=== PATIENT | female | born 1985 | race Caucasian/White ===

== ENCOUNTER 2021-08-04 11:02 | Outpatient (CLI) | payer BC ==
[2021-08-04 15:00] LABS: Hemoglobin 12.3 g/dL (12.0-15.5); Mean Corpuscular HGB CONC 32.5 g/dL (32.0-36.0); Mean Corpuscular Hemoglobin 29.8 pg (27.0-33.0); Mean Corpuscular Volume 91.8 fl (81.6-98.3); Mean Platelet Volume 12.4 fl (7.4-10.4); Platelet Count 344 10x3/uL (150-450); RBC Distribution Width 13.8 % (11.5-14.5); Red Blood Cell (RBC) Count 4.13 10x6/uL (3.90-5.03); White Blood Cell (WBC) Count 14.1 10x3/uL (3.5-10.5)
[2021-08-04 15:31] LABS: HIV (1/2) Antibody/Antigen Non-Reactive (NonReactive); HIV 1/2 INDEX 0.09 S/CO (<1.00); Syphilis Antibody Nonreactive (Nonreactive); Syphilis Antibody Index 0.05 S/CO (<1.00 Non-Reactive)
[2021-08-05 12:53] LABS: HBSAB Concentration Less than 8.00 mIU/mL; Hep B Surf AB Non-Reactive (NonReactive)
[2021-08-05 15:13] LABS: SARS-CoV-2 PCR by NAA Not Detected (NotDetected)
== END 2021-08-04 11:03 | disposition home or self-care (01) ==
LOC: CSHLAB 11:02
PROVIDERS: ATTEND Obstetrics & Gynecology
DX: Z01.812 Encounter for preprocedural laboratory examination (principal); Z20.822 Contact with and (suspected) exposure to COVID-19
CPT/HCPCS: 36415; 85027; 86706; 86780; 87389; U0003; U0005

== ENCOUNTER 2021-08-06 09:47 | Inpatient (IN) | payer BC, OTHER ==
[2021-08-06] MEDS ORDERED: Promethazine HCl 25 MG/ML VIAL IM PRN ×2 (10:31→14:29)
[2021-08-06] MEDS ORDERED: Ondansetron PF 4 MG/2 ML Vial IVP PRN ×2 (10:31→14:29)
[2021-08-06] MEDS ORDERED: Famotidine/PF 20 mg/2ml Vial SLOW IVP PRN (10:31)
[2021-08-06] MEDS ORDERED: ceFAZolin 2 GM/Dextrose 50 ML 2 GM in Premix Bag 1 BAG IVPB SCH (10:31)
[2021-08-06] MEDS ORDERED: hydrALAZINE 20 MG/ML VIAL SLOW IVP PRN (10:31)
[2021-08-06] MEDS ORDERED: Bicitra 30 ML UDCUP PO PRN (10:31)
[2021-08-06] MEDS ORDERED: Morphine PF 10 MG/10 ML VIAL ONE (11:50)
[2021-08-06] MEDS ORDERED: Fentanyl 100 MCG/2 ML VIAL ONE (11:50)
[2021-08-06] MEDS ORDERED: Oxytocin 10 UNITS/ML VIAL ONE ×2 (11:52→13:40)
[2021-08-06] MEDS ORDERED: Ondansetron PF 4 MG/2 ML Vial ONE (11:52)
[2021-08-06] MEDS ORDERED: Dexamethasone 4 mg/ml Vial ONE (11:52)
[2021-08-06] MEDS ORDERED: Ketorolac Tromethamine 30 MG/ML VIAL ONE (11:53)
[2021-08-06] MEDS ORDERED: Phenylephrine 40 MG/NS 250 ML 250 ML ONE (11:53)
[2021-08-06] MEDS ORDERED: Simethicone Chewable 80 MG TAB PO PRN (14:16)
[2021-08-06] MEDS ORDERED: diphenhydrAMINE 25 MG CAP PO PRN (14:16)
[2021-08-06] MEDS ORDERED: Boostrix 0.5 ML (Tdap) VIAL IM ONE (14:16)
[2021-08-06] MEDS ORDERED: Misoprostol 200 MCG TAB PR PRN (14:16)
[2021-08-06] MEDS ORDERED: Bisacodyl 10 MG SUPP PR PRN (14:16)
[2021-08-06] MEDS ORDERED: Lanolin Ointment 7 GM TUBE TOP PRN (14:16)
[2021-08-06] MEDS ORDERED: Acetaminophen 325 MG TAB PO PRN (14:16)
[2021-08-06] MEDS ORDERED: Fentanyl 100 MCG/2 ML VIAL SLOW IVP PRN (14:29)
[2021-08-06] MEDS ORDERED: Naloxone HCl 0.4 mg/ml Vial IVP PRN ×2 (14:29)
[2021-08-06] MEDS ORDERED: Promethazine HCl 25 MG SUPP PR PRN (14:29)
[2021-08-06] MEDS ORDERED: Ondansetron HCl/PF 4 MG/2 ML Vial IVP PRN (14:29)
[2021-08-06] MEDS ORDERED: Meperidine HCl/PF 25 MG/ML VIAL SLOW IVP PRN (14:29)
[2021-08-06] MEDS ORDERED: diphenhydrAMINE 50 MG/ML VIAL IVP PRN (14:29)
[2021-08-06] MEDS ORDERED: Hydrocerin (Eucerin) Cream 120 gm Jar TOP PRN (14:29)
[2021-08-06] MEDS ORDERED: L&D-Morphine 4 MG/ML VIAL SLOW IVP PRN (14:29)
[2021-08-06] MEDS ORDERED: Naloxone HCl 0.4 mg/ml Vial IV PRN (14:29)
[2021-08-06] MEDS ORDERED: Communication Order-Pharmacy FS SCH (14:30)
[2021-08-06] MEDS ORDERED: NS w/ Oxytocin 30 units 500 ML IV SCH (14:30)
[2021-08-06] MEDS ORDERED: Ketorolac Tromethamine 30 MG/ML VIAL IVP SCH (14:30)
[2021-08-06] MEDS: Lactated Ringer's 1,000 ML IV SCH ×2 (16:03→21:46)
[2021-08-06] MEDS ORDERED: ePHEDrine Sulfate 50 MG/10 ML VIAL ONE ×2 (16:40→16:42)
[2021-08-06] MEDS ORDERED: ePHEDrine Sulfate 50 MG/10 ML VIAL SLOW IVP SCH (16:45)
[2021-08-06] MEDS: Docusate 100 MG CAP PO SCH (21:43)
[2021-08-06] MEDS: Ferrous Sulfate 325 MG TAB PO SCH (21:53)
[2021-08-06] MEDS: Ketorolac Tromethamine 30 MG/ML VIAL IVP PRN (22:37)
[2021-08-07] MEDS: Ketorolac Tromethamine 30 MG/ML VIAL IVP PRN (04:54)
[2021-08-07 05:16] LABS: Hemoglobin 9.3 g/dL (12.0-15.5); Mean Corpuscular Hemoglobin 29.8 pg (27.0-33.0); Mean Corpuscular Volume 93.3 fl (81.6-98.3); Platelet Count 285 10x3/uL (150-450); RBC Distribution Width 13.9 % (11.5-14.5); Red Blood Cell (RBC) Count 3.12 10x6/uL (3.90-5.03); White Blood Cell (WBC) Count 13.9 10x3/uL (3.5-10.5)
[2021-08-07] MEDS: Lactated Ringer's 1,000 ML IV SCH (06:03)
[2021-08-07] MEDS: Ferrous Sulfate 325 MG TAB PO SCH ×2 (08:36→20:21)
[2021-08-07] MEDS: Docusate 100 MG CAP PO SCH ×2 (08:36→20:21)
[2021-08-07] MEDS: Prenatal Vitamin 1 TAB PO SCH (08:36)
[2021-08-07] MEDS: Ibuprofen 800 MG TAB PO SCH ×2 (13:47→22:10)
[2021-08-07] MEDS: HYDROcodone/Acetaminophen 5/325 mg Tablet PO PRN (20:20)
[2021-08-07] MEDS ORDERED: HYDROcodone/Acetaminophen 5/325 mg Tablet PO PRN (23:16)
[2021-08-08] MEDS: HYDROcodone/Acetaminophen 5/325 mg Tablet PO PRN (02:19)
[2021-08-08] MEDS: Lactated Ringer's 1,000 ML IV SCH ×3 (05:04→07:33)
[2021-08-08] MEDS: Ibuprofen 800 MG TAB PO SCH ×2 (05:52→13:24)
[2021-08-08] MEDS: Ferrous Sulfate 325 MG TAB PO SCH (08:04)
[2021-08-08] MEDS: Prenatal Vitamin 1 TAB PO SCH (08:04)
[2021-08-08] MEDS: Docusate 100 MG CAP PO SCH (08:04)
[2021-08-08 11:07] VITALS: BP 137/79; TEMP 98.1
== END 2021-08-08 17:20 | disposition home or self-care (01) | DRG 788 ==
LOC: CSHLD 09:47 → CSHPP 16:30
PROVIDERS: ADMIT Obstetrics & Gynecology; ATTEND Obstetrics & Gynecology
PROC: 10907ZC Drainage of Amniotic Fluid, Therapeutic from Products of Conception, Via Natural or Artificial Opening (ICD-10-PCS; principal; 2021-08-06)
PROC: 10D00Z1 Extraction of Products of Conception, Low, Open Approach (ICD-10-PCS; 2021-08-06)
DX: O99.824 Streptococcus B carrier state complicating childbirth (principal); O32.1XX0 Maternal care for breech presentation, not applicable or unspecified; Z3A.39 39 weeks gestation of pregnancy; Z37.0 Single live birth
CPT/HCPCS: 36415; 51702; 85027; 86706; 86780; 86850; 86900; 86901; 87389; J0690; J1100; J1885; J2274; J2405; J2590; J3010; J7120; U0003; U0005

== ENCOUNTER 2022-09-07 07:05 | Inpatient (IN) | payer BC ==
[2022-09-07] MEDS ORDERED: Promethazine HCl 25 MG/ML VIAL IM PRN ×4 (08:23→13:45)
[2022-09-07] MEDS ORDERED: Methylergonovine 0.2 MG/ML VIAL IM PRN ×3 (08:23→13:45)
[2022-09-07] MEDS ORDERED: Tranexamic Acid 1,000 MG in Sodium Chloride 0.9% 250 ML 250 ML IVPB PRN ×2 (08:23→08:47)
[2022-09-07] MEDS ORDERED: Famotidine/PF 20 mg/2ml Vial SLOW IVP PRN ×2 (08:23→08:47)
[2022-09-07] MEDS ORDERED: Bicitra 30 ML UDCUP PO PRN ×2 (08:23→08:47)
[2022-09-07] MEDS ORDERED: Ondansetron PF 4 MG/2 ML Vial IVP PRN ×4 (08:23→13:45)
[2022-09-07] MEDS ORDERED: hydrALAZINE 20 MG/ML VIAL SLOW IVP PRN ×3 (08:23→13:45)
[2022-09-07] MEDS ORDERED: Carboprost 250 MCG/ML AMP IM PRN ×2 (08:23→08:47)
[2022-09-07] MEDS ORDERED: Misoprostol 200 MCG TAB PR PRN ×3 (08:23→13:45)
[2022-09-07] MEDS ORDERED: Lactated Ringer's 1,000 ML IV SCH ×2 (08:30→09:00)
[2022-09-07] MEDS ORDERED: NS w/ Oxytocin 30 units 500 ML IV SCH ×3 (08:30→13:45)
[2022-09-07] MEDS ORDERED: CEFAZOLIN 2 GM in Sodium Chloride 0.9% 100 ML IVPB SCH (08:30)
[2022-09-07 08:45] VITALS: BMI 48.7
[2022-09-07] MEDS ORDERED: Diphenoxylate HCl/Atropine Tablet PO PRN ×2 (08:47)
[2022-09-07] MEDS ORDERED: Clindamycin/D5W 900 MG in Premix Bag 1 BAG IVPB SCH (09:00)
[2022-09-07] MEDS ORDERED: Oxytocin 10 UNITS/ML VIAL ONE (09:53)
[2022-09-07] MEDS ORDERED: Ketorolac Tromethamine 30 MG/ML VIAL ONE (09:53)
[2022-09-07] MEDS ORDERED: ePHEDrine Sulfate 50 MG/10 ML VIAL ONE (09:53)
[2022-09-07] MEDS ORDERED: Morphine PF 10 MG/10 ML VIAL ONE (09:53)
[2022-09-07] MEDS ORDERED: Fentanyl 100 MCG/2 ML VIAL ONE (09:53)
[2022-09-07] MEDS ORDERED: Phenylephrine 40 MG/NS 250 ML 250 ML ONE (09:53)
[2022-09-07] MEDS ORDERED: Ondansetron PF 4 MG/2 ML Vial ONE (09:53)
[2022-09-07 10:07] LABS: Hemoglobin 11.8 g/dL (12.0-15.5); Mean Corpuscular HGB CONC 32.3 g/dL (32.0-36.0); Mean Corpuscular Hemoglobin 30.4 pg (27.0-33.0); Mean Corpuscular Volume 94.1 fl (81.6-98.3); Platelet Count 316 10x3/uL (150-450); RBC Distribution Width 14.6 % (11.5-14.5); Red Blood Cell (RBC) Count 3.88 10x6/uL (3.90-5.03); White Blood Cell (WBC) Count 15.7 10x3/uL (3.5-10.5)
[2022-09-07 10:20] LABS: SARS-CoV-2 NAA Rapid Test Not Detected (NotDetected)
[2022-09-07 10:21] LABS: Syphilis Antibody Nonreactive (Nonreactive); Syphilis Antibody Index 0.05 S/CO (<1.00 Non-Reactive)
[2022-09-07 10:23] LABS: HBSAg Index 0.16 S/CO (0-0.99); Hep B Surf Ag Non-Reactive S/CO (NonReactive)
[2022-09-07] MEDS ORDERED: ADMIXTURE FEE IVPB SCH (10:30)
[2022-09-07] MEDS ORDERED: SODIUM CHLORIDE IVPB SCH (10:30)
[2022-09-07] MEDS ORDERED: GENTAMICIN IVPB SCH (10:30)
[2022-09-07] MEDS ORDERED: Promethazine HCl 25 MG SUPP PR PRN (11:35)
[2022-09-07] MEDS ORDERED: Fentanyl 100 MCG/2 ML VIAL SLOW IVP PRN (11:35)
[2022-09-07] MEDS ORDERED: diphenhydrAMINE 50 MG/ML VIAL IVP PRN (11:35)
[2022-09-07] MEDS ORDERED: Meperidine HCl/PF 25 MG/ML VIAL SLOW IVP PRN (11:35)
[2022-09-07] MEDS ORDERED: HYDROmorphone 2 MG/ML VIAL SLOW IVP PRN (11:35)
[2022-09-07] MEDS ORDERED: Naloxone HCl 0.4 mg/ml Vial IVP PRN ×2 (11:35)
[2022-09-07] MEDS ORDERED: Ondansetron HCl/PF 4 MG/2 ML Vial IVP PRN (11:35)
[2022-09-07] MEDS ORDERED: Naloxone HCl 0.4 mg/ml Vial IV PRN (11:35)
[2022-09-07] MEDS ORDERED: Moisturizing Cream (Eucerin) 113 GM JAR TOP PRN (11:35)
[2022-09-07] MEDS ORDERED: Communication Order-Pharmacy FS SCH (11:45)
[2022-09-07] MEDS ORDERED: Varicella virus, LIVE 0.5 ML VIAL SC ONE (13:45)
[2022-09-07] MEDS ORDERED: Measles/Mumps/Rubella 10 MCG/0.5 ML VIAL SC ONE (13:45)
[2022-09-07] MEDS ORDERED: Boostrix 0.5 ML (Tdap) VIAL (>/=7 yrs of age) IM ONE (13:45)
[2022-09-07] MEDS ORDERED: Lanolin Ointment 7 GM TUBE TOP PRN (13:45)
[2022-09-07] MEDS ORDERED: Bisacodyl 10 MG SUPP PR PRN (13:45)
[2022-09-07] MEDS ORDERED: diphenhydrAMINE 25 MG CAP PO PRN (13:45)
[2022-09-07] MEDS ORDERED: NS w/ Oxytocin 30 units 500 ML ONE (13:53)
[2022-09-07] MEDS: Ferrous Sulfate 325 MG TAB PO SCH (19:20)
[2022-09-07] MEDS: Ketorolac Tromethamine 30 MG/ML VIAL IVP PRN (20:39)
[2022-09-07] MEDS: Docusate 100 MG CAP PO SCH (20:40)
[2022-09-07] MEDS ORDERED: Zolpidem Tartrate 5 MG TAB PO PRN (23:45)
[2022-09-07] MEDS ORDERED: HYDROcodone/Acetaminophen 5/325 mg Tablet PO PRN (23:45)
[2022-09-08] MEDS: Ketorolac Tromethamine 30 MG/ML VIAL IVP PRN ×2 (03:26→09:54)
[2022-09-08 03:44] LABS: Hemoglobin 10.7 g/dL (12.0-15.5); Mean Corpuscular Hemoglobin 30.1 pg (27.0-33.0); Mean Platelet Volume 12.2 fl (7.4-10.4); Platelet Count 161 10x3/uL (150-450); RBC Distribution Width 14.6 % (11.5-14.5); Red Blood Cell (RBC) Count 3.56 10x6/uL (3.90-5.03); White Blood Cell (WBC) Count 14.5 10x3/uL (3.5-10.5)
[2022-09-08] MEDS: Simethicone Chewable 80 MG TAB PO PRN ×3 (09:54→19:02)
[2022-09-08] MEDS: Prenatal Vitamin 1 TAB PO SCH (09:54)
[2022-09-08] MEDS: Docusate 100 MG CAP PO SCH ×2 (09:54→21:19)
[2022-09-08] MEDS: Ferrous Sulfate 325 MG TAB PO SCH ×2 (10:01→23:56)
[2022-09-08] MEDS: HYDROcodone/Acetaminophen 5/325 mg Tablet PO PRN ×3 (10:27→19:03)
[2022-09-08] MEDS: Ibuprofen 800 MG TAB PO SCH ×2 (15:01→21:19)
[2022-09-09] MEDS: HYDROcodone/Acetaminophen 5/325 mg Tablet PO PRN (01:35)
[2022-09-09] MEDS: Ibuprofen 800 MG TAB PO SCH ×2 (05:58→13:48)
[2022-09-09] MEDS: Simethicone Chewable 80 MG TAB PO PRN ×2 (06:00→11:12)
[2022-09-09] MEDS: Prenatal Vitamin 1 TAB PO SCH (07:59)
[2022-09-09] MEDS: Docusate 100 MG CAP PO SCH (07:59)
[2022-09-09 08:03] VITALS: BP 123/70; TEMP 98.1
[2022-09-09] MEDS: Ferrous Sulfate 325 MG TAB PO SCH (10:42)
== END 2022-09-09 15:05 | disposition home or self-care (01) | DRG 787 ==
LOC: CSHLD/OP 07:05 → CSHLD 09:04 → CSHPP 14:00
PROVIDERS: ADMIT Obstetrics & Gynecology; ATTEND Obstetrics & Gynecology
PROC: 10D00Z1 Extraction of Products of Conception, Low, Open Approach (ICD-10-PCS; principal; 2022-09-07)
DX: O42.02 Full-term premature rupture of membranes, onset of labor within 24 hours of rupture (principal); O99.354 Diseases of the nervous system complicating childbirth; Z3A.38 38 weeks gestation of pregnancy; Z37.0 Single live birth; Z20.822 Contact with and (suspected) exposure to COVID-19; O34.211 Maternal care for low transverse scar from previous cesarean delivery; Z88.0 Allergy status to penicillin; F32.A Depression, unspecified; F41.9 Anxiety disorder, unspecified; O99.344 Other mental disorders complicating childbirth; Z79.899 Other long term (current) drug therapy; G43.909 Migraine, unspecified, not intractable, without status migrainosus
CPT/HCPCS: 36415; 51702; 85027; 86780; 86850; 86900; 86901; 87340; 99285; J1650; J1885; J2274; J2405; J2550; J2590; J3010; J3490; S0028; U0002

== ENCOUNTER 2023-05-05 14:08 | Outpatient (CLI) | payer BC | END 2023-05-05 14:09 | disposition home or self-care (01) | LOC: CSHMAMMO 14:08 | PROVIDERS: ATTEND Obstetrics & Gynecology | DX: Z12.31 Encounter for screening mammogram for malignant neoplasm of breast (principal); Z80.3 Family history of malignant neoplasm of breast | CPT/HCPCS: 77063; 77067 ==